=== PATIENT | male | born 1965 | race Caucasian/White ===

== ENCOUNTER → 2016-09-11 | Day surgery (SDC) | payer OTHER ==
[~2016-09-11] VITALS: Ht 172.7 cm; Wt 163.3 kg
[~2016-09-11] MED LIST: /METO25TAB PO; ASPI325T PO; ASPI81TA85 PO; CELE10TA PO; CHLO125TA PO; DRIS50002 PO; FISHOIL PO; GLUC500T PO; LISI5TAB PO; LR 1,000 ML IV SCH; POTA20PO4 PO; ZOCO40TA PO
--- NOTE | 2016-09-11 08:04 | ROOR ---
Patient Name: Tariq Fountain Procedure Date: 09/11/2016 6:15 AM Date of : 1965 Age: 51 Gender: Male Note Status: Finalized Procedure: Colonoscopy to Cecum Indications: Screening for colorectal malignant neoplasm Providers: Bk Mario MD Referring MD: ANA FARMER NP Requesting Provider: Medicines: Monitored Anesthesia Care Complications: No immediate complications. Procedure: Pre-Anesthesia Assessment: - The heart rate, respiratory rate, oxygen saturations, blood pressure, adequacy of pulmonary ventilation, and response to care were monitored throughout the procedure. The Colonoscope was introduced through the anus and advanced to the cecum, identified by appendiceal orifice and ileocecal valve. The colonoscopy was performed without difficulty. The patient tolerated the procedure well. The quality of the bowel preparation was excellent. Findings: The perianal and digital rectal examinations were normal. Non-bleeding internal hemorrhoids were found during retroflexion. The hemorrhoids were small and Grade I (internal hemorrhoids that do not prolapse). No other significant abnormalities were identified in a careful examination of the remainder of the colon. The exam was otherwise without abnormality. Impression: - Non-bleeding internal hemorrhoids. - The examination was otherwise normal. - No specimens collected. - The exam was otherwise normal to the cecum. Recommendation: - Patient has a contact number available for emergencies. The signs and symptoms of potential delayed complications were discussed with the patient. Return to normal activities tomorrow. Written discharge instructions were provided to the patient. - High fiber diet. - Discharge patient to home. - Continue present medications. - Repeat colonoscopy in 10 years for screening purposes. - Return to referring physician. - The findings and recommendations were discussed with the patient's family. Attending Participation: I personally performed the entire procedure. Bk Mario MD Bk Mario MD 09/11/2016 8:04:13 AM This report has been signed electronically. Number of Addenda: 0 Note Initiated On: 09/11/2016 6:15 AM Estimated Blood Loss: Estimated blood loss: none.
[2016-09-11 08:35] VITALS: BP 155/81
== END ==
LOC: M SDC 06:01
PROVIDERS: ATTEND Internal Medicine Gastroenterology
DX: Z12.11 Encounter for screening for malignant neoplasm of colon (principal); K64.0 First degree hemorrhoids; I10 Essential (primary) hypertension; E11.9 Type 2 diabetes mellitus without complications; E78.5 Hyperlipidemia, unspecified; M17.10 Unilateral primary osteoarthritis, unspecified knee; Z79.899 Other long term (current) drug therapy; Z79.84 Long term (current) use of oral hypoglycemic drugs; Z79.82 Long term (current) use of aspirin

== ENCOUNTER → 2016-11-22 | Outpatient (CLI) | payer OTHER ==
[~2016-11-22] MED LIST changes: -LR 1,000 ML IV SCH
--- NOTE | 2016-11-25 09:55 | SLEEPHOME ---
DATE OF STUDY: 11/22/2016 ORDERING PROVIDER: Michelle Mullins Diagnostic home sleep testing was performed due to concern for the obstructive sleep apnea syndrome. For testing, a NOX-T3 respiratory monitoring device was used. Continuous record was made of pulse, oxygen saturation, airflow, chest and abdominal strain, and body position. 9 hours and 59 minutes of data were reviewed. Of these, 4 hours and 6 minutes were marked as time in bed. During the interval marked time in bed, there were 358 respiratory events identified of 10 seconds in duration or greater for a respiratory event index of 87. The events were primarily obstructive. Some central and mixed apneas were scattered throughout the test. The patient's baseline pulse rate was 63. Pulse rate ranged 49-147. Baseline saturation 94%. Lowest oxygen saturation 76%. Testing was performed in predominantly the supine position. Limited nonsupine data was also reviewed. IMPRESSION: Abnormal diagnostic home sleep test with repetitive respiratory events and oxygen desaturations to 76% with a respiratory event index of 87 is consistent with severe obstructive sleep apnea syndrome. RECOMMENDATION: The patient should be encouraged to undergo formal sleep evaluation and in-laboratory pressure titration at the earliest convenience. In the interim, alcohol and sedative avoidance should be practiced and caution exercised during the operation of motor vehicles.
== END ==
LOC: M SLEEP HO 07:44
PROVIDERS: ATTEND Nurse Practitioner Adult Health
DX: G47.33 Obstructive sleep apnea (adult) (pediatric) (principal)

== ENCOUNTER → 2017-03-10 | Outpatient (CLI) | payer OTHER ==
--- NOTE | 2017-03-12 20:03 | SLEEPCENT ---
DATE OF PROCEDURE: 03/10/2017 REFERRING PHYSICIAN: Lydia Eli Nocturnal polysomnography was performed for the titration of pressure therapy in this patient with a clinical diagnosis of obstructive sleep apnea syndrome confirmed by home testing revealing a respiratory event index of 87. For testing, a [employer] Jen View full face mask of small size was used. 5 cm of water pressure were applied to the circuit and the lights were extinguished. 7 hours and 27 minutes of data were reviewed. There were 297 minutes of sleep identified. Sleep latency was prolonged at 132.5 minutes. Rapid eye movement (REM) latency was also prolonged at 151 minutes. Sleep architecture improved substantially with the optimal titration of pressure. Overall sleep efficiency was 67.1%. The patient's EKG showed a sinus rhythm with an average heart rate of 60 beats per minute. EEG showed reasonably normal waveforms for awake and sleep stages. Respiratory events persisted prompting and increase in CPAP pressure to the optimal pressure of +13, with which the patient slept through REM without respiratory event or oxygen desaturation in the supine posture. Significant limb activity was also noted, however, arousals from limb events were few. Remaining measures of sleep physiology were normal. IMPRESSION: Obstructive sleep apnea syndrome (G47.33). RECOMMENDATION: Nightly use of pressure therapy at 13 cm of water.
== END ==
LOC: M SLEEP 20:00
PROVIDERS: ATTEND Nurse Practitioner Adult Health
DX: G47.33 Obstructive sleep apnea (adult) (pediatric) (principal)

== ENCOUNTER → 2018-01-29 | Outpatient (CLI) | payer OTHER | LOC: M SLEEP 19:16 | DX: G47.33 Obstructive sleep apnea (adult) (pediatric) (principal) | CPT/HCPCS: 95811 ==

== ENCOUNTER → 2021-09-26 | Outpatient (REF) ==
[~2021-09-26] MED LIST changes: -/METO25TAB PO; -ASPI81TA85 PO; +ASPI81TA86 PO; -DRIS50002 PO; +DRIS50003 PO; +METO1TAB87 PO
== END ==
LOC: M PLAIMG 10:53
PROVIDERS: ATTEND Internal Medicine
DX: Z00.00 Encounter for general adult medical examination without abnormal findings (principal)

== ENCOUNTER 2023-06-19 21:15 | Inpatient (IN) | payer OTHER ==
[~2023-06-19] VITALS: Ht 172.7 cm; Wt 153.0 kg
[2023-06-19] MEDS ORDERED: NS 1,000 ML IV ONE (21:40)
[2023-06-19 21:55] LABS: BASO # 0.1 10^3/uL (0.0-0.2); BASO % 0.4 % (0.0-1.0); EOS # 0.3 10^3/uL (0.0-0.5); EOS % 2.1 % (0.0-3.0); HEMATOCRIT 45.2 % (42.0-52.0); HEMOGLOBIN 14.8 g/dl (13.5-17.5); LYMPH # 1.8 10^3/uL (1.5-5.0); MEAN CORPUSCULAR HEMOGLOBIN 28.4 pg (27.0-33.0); MEAN CORPUSCULAR HGB CONC 32.7 g/dl (32.0-36.5); MEAN CORPUSCULAR VOLUME 86.6 fl (80.0-96.0); MONO # 0.7 10^3/uL (0.0-0.8); MONO % 5.8 % (2.0-8.0); NEUTROPHILS # 8.9 10^3/uL (1.5-8.5); NEUTROPHILS % 76.4 % (36.0-66.0); PLATELET COUNT, AUTOMATED 297 10^3/uL (150-450); RED BLOOD COUNT 5.22 10^6/uL (4.30-6.10); WHITE BLOOD COUNT 11.7 10^3/uL (4.0-10.0)
[2023-06-19 22:00] LABS: ETHYL ALCOHOL (ETHANOL) < 0.003 % (0.000-0.010)
[2023-06-19 22:02] LABS: SALICYLATE LEVEL < 3.0 MG/DL (<30)
[2023-06-19 22:03] LABS: ACETONE/KETONE 0.28 MMOL/L (0.02-0.27)
[2023-06-19 22:04] LABS: OSMOLALITY SERUM 308 MOSM/KG (275-295)
[2023-06-19 22:05] LABS: ALBUMIN 2.9 G/DL (3.2-5.2); ALKALINE PHOSPHATASE 88 U/L (46-116); ALT/SGPT 16 U/L (7.0-40); AST/SGOT 14 U/L (<34); BILIRUBIN,DIRECT < 0.1 MG/DL (<0.4); BILIRUBIN,TOTAL 0.2 MG/DL (0.3-1.2); BLOOD UREA NITROGEN 21 MG/DL (9-23); CALCIUM LEVEL 8.8 MG/DL (8.5-10.1); CARBON DIOXIDE LEVEL 23 MMOL/L (20-31); CHLORIDE LEVEL 105 MMOL/L (98-107); CPK CREATINE PHOSPHOKINASE 123 U/L (46-171); CREATININE FOR GFR 0.88 MG/DL (0.70-1.30); GLOMERULAR FILTRATION RATE > 60.0 (>56); MB/CK RELATIVE INDEX 0.81 (< OR =4); POTASSIUM SERUM 4.1 MMOL/L (3.5-5.1); SODIUM LEVEL 137 MMOL/L (136-145); TOTAL PROTEIN 6.5 G/DL (5.7-8.2)
[2023-06-19 22:06] LABS: GLUCOSE, FASTING 483 MG/DL (60-100)
[2023-06-19 22:44] LABS: VENOUS BASE EXCESS -2.8 (-2.0-2.0); VENOUS HCO3 22.8 MMOL/L (23.0-27.0); VENOUS O2 SATURATION 87.6 % (60.0-80.0); VENOUS PARTIAL PRESSURE CO2 42.3 mmHg (38.0-50.0); VENOUS PARTIAL PRESSURE O2 55.4 mmHg (30.0-50.0); VENOUS PH 7.349 UNITS (7.330-7.430); VENOUS STANDARD HCO3 21.9 MMOL/L; VENOUS TOTAL CO2 24.1 MMOL/L (24.0-28.0)
[2023-06-19 23:07] LABS: HEMOGLOBIN A1c 11.4 % (4.0-6.0)
[2023-06-20 00:31] LABS: CK-MB VALUE MASS 1.5 NG/ML (<3.6)
[2023-06-20 00:34] LABS: MB/CK RELATIVE INDEX 1.21 (< OR =4)
[2023-06-20] MEDS ORDERED: LEVEMIR (INSULIN DETEMIR) 1 UNITS/0.01ML SC ONE (00:55)
[2023-06-20] MEDS ORDERED: HumuLIN R (REGULAR) INSULIN (NovoLIN R) **100U/ML** PER UNIT SC ONE (00:55)
[2023-06-20] MEDS ORDERED: CARVedilol 12.5 MG TAB PO ONE ×2 (00:55→05:25)
[2023-06-20 01:54] LABS: AMPHETAMINES LEVEL URINE NEGATIVE (NEGATIVE); BARBITURATES URINE NEGATIVE (NEGATIVE); BENZODIAZEPINES URINE NEGATIVE (NEGATIVE); CANNABINOIDS URINE NEGATIVE (NEGATIVE); COCAINE METABOLITE URINE NEGATIVE (NEGATIVE); METHADONE URINE NEGATIVE (NEGATIVE); OPIATES URINE NEGATIVE (NEGATIVE); PHENCYCLIDINE URINE NEGATIVE (NEGATIVE)
[2023-06-20] MEDS ORDERED: APIXABAN 5 MG TAB (ELIQUIS) PO ONE (04:55)
[2023-06-20] MEDS ORDERED: GLUCAGON INJ 1MG VIAL SC PRN (05:25)
[2023-06-20] MEDS ORDERED: GLUCOSE 4GM CHEW TABLET PO PRN (05:25)
[2023-06-20] MEDS ORDERED: DEXTROSE 50% 50ML SYRINGE IV PRN (05:25)
[2023-06-20] MEDS ORDERED: FENO200C24 PO (05:30)
[2023-06-20] MEDS ORDERED: C 50TAB PO (05:30)
[2023-06-20] MEDS ORDERED: VITA100093 PO (05:30)
[2023-06-20] MEDS ORDERED: ASPI-161 PO (05:30)
[2023-06-20] MEDS ORDERED: OMEG10002 PO (05:30)
[2023-06-20] MEDS ORDERED: NESI25TA PO (05:30)
[2023-06-20] MEDS ORDERED: METF-877 PO (05:30)
[2023-06-20] MEDS ORDERED: HOME MED LIST COMPLETE! XX SCH (05:35)
[2023-06-20 07:32] LABS: THYROID STIMULATING HORMONE 0.628 uIU/ML (0.55-4.78)
[2023-06-20] MEDS: INSULIN LISPRO (NovoLOG) PER UNIT SC SCH ×4 (09:21→21:00)
[2023-06-20 11:29] LABS: MAGNESIUM LEVEL 1.8 MG/DL (1.8-2.4)
[2023-06-20] MEDS ORDERED: DIGOXIN INJ 0.5 MG/2 ML AMP IV STA (16:11)
[2023-06-20 16:35] VITALS: BP 151/81; TEMP 97.7; O2SAT 96
[2023-06-20 19:51] VITALS: BP 153/98; TEMP 97.2; O2SAT 97
[2023-06-20] MEDS: CARVedilol 12.5 MG TAB PO SCH (20:06)
[2023-06-20] MEDS: APIXABAN 5 MG TAB (ELIQUIS) PO SCH (20:06)
[2023-06-20 23:36] VITALS: BP 159/77; TEMP 96.7; O2SAT 97
[2023-06-21] MEDS: ACETAMINOPHEN TAB 650MG DOSE (2X325MG) PO PRN (01:42)
[2023-06-21 03:39] VITALS: BP 150/94; TEMP 96.5; O2SAT 93
[2023-06-21 05:18] LABS: BASO # 0.1 10^3/uL (0.0-0.2); BASO % 0.6 % (0.0-1.0); EOS # 0.5 10^3/uL (0.0-0.5); EOS % 4.3 % (0.0-3.0); LYMPH # 2.6 10^3/uL (1.5-5.0); LYMPH % 23.7 % (24.0-44.0); MEAN CORPUSCULAR HEMOGLOBIN 28.1 pg (27.0-33.0); MEAN CORPUSCULAR HGB CONC 32.6 g/dl (32.0-36.5); MEAN CORPUSCULAR VOLUME 86.2 fl (80.0-96.0); MONO # 0.8 10^3/uL (0.0-0.8); NEUTROPHILS # 6.9 10^3/uL (1.5-8.5); NEUTROPHILS % 64.1 % (36.0-66.0); PLATELET COUNT, AUTOMATED 294 10^3/uL (150-450); RED BLOOD COUNT 4.99 10^6/uL (4.30-6.10); WHITE BLOOD COUNT 10.8 10^3/uL (4.0-10.0)
[2023-06-21 05:33] LABS: BLOOD UREA NITROGEN 22 MG/DL (9-23); CALCIUM LEVEL 8.9 MG/DL (8.5-10.1); CARBON DIOXIDE LEVEL 23 MMOL/L (20-31); CHLORIDE LEVEL 103 MMOL/L (98-107); GLOMERULAR FILTRATION RATE > 60.0 (>56); GLUCOSE, FASTING 265 MG/DL (60-100); POTASSIUM SERUM 4.3 MMOL/L (3.5-5.1); SODIUM LEVEL 135 MMOL/L (136-145)
[2023-06-21 08:00] VITALS: BP 153/87; TEMP 97; O2SAT 96
[2023-06-21] MEDS ORDERED: INFLUENZA QUADRIVALENT PF VACCINE 0.5ML SYRINGE IM.IMMUN ONE (09:00)
[2023-06-21] MEDS: CARVedilol 12.5 MG TAB PO SCH ×2 (09:20→20:32)
[2023-06-21] MEDS: APIXABAN 5 MG TAB (ELIQUIS) PO SCH ×2 (09:20→20:32)
[2023-06-21] MEDS: DIGOXIN 0.125 MG TAB PO SCH (09:21)
[2023-06-21] MEDS: INSULIN LISPRO (NovoLOG) PER UNIT SC SCH ×7 (09:22→20:33)
[2023-06-21 12:00] VITALS: BP 144/91; TEMP 98.3; O2SAT 95
[2023-06-21 16:00] VITALS: BP 152/86; TEMP 97.6; O2SAT 95
[2023-06-21 20:20] VITALS: BP 163/75; TEMP 96.9; O2SAT 92
[2023-06-21 21:55] VITALS: BP 144/73; TEMP 97.9; O2SAT 93
[2023-06-21] MEDS ORDERED: INSULIN LISPRO (NovoLOG) PER UNIT SC STA (22:43)
[2023-06-22] MEDS ORDERED: metFORMIN (GLUCOPHAGE) 1000MG TABLET PO ONE (01:00)
[2023-06-22 05:53] VITALS: BP 139/74; TEMP 97.5; O2SAT 96
[2023-06-22 08:53] LABS: BLOOD UREA NITROGEN 20 MG/DL (9-23); CALCIUM LEVEL 9.2 MG/DL (8.5-10.1); CARBON DIOXIDE LEVEL 25 MMOL/L (20-31); CHLORIDE LEVEL 105 MMOL/L (98-107); CREATININE FOR GFR 0.77 MG/DL (0.70-1.30); GLOMERULAR FILTRATION RATE > 60.0 (>56); GLUCOSE, FASTING 273 MG/DL (60-100); POTASSIUM SERUM 4.6 MMOL/L (3.5-5.1); SODIUM LEVEL 139 MMOL/L (136-145)
[2023-06-22] MEDS: APIXABAN 5 MG TAB (ELIQUIS) PO SCH ×2 (09:25→21:28)
[2023-06-22] MEDS: ASCORBIC ACID 500 MG TAB PO SCH (09:25)
[2023-06-22] MEDS: ASPIRIN 81MG ENTERIC TABLET PO SCH (09:25)
[2023-06-22] MEDS: SITagliptin 50 MG TAB (JANUVIA) PO SCH (09:25)
[2023-06-22] MEDS: OMEGA-3 1000MG CAPSULE PO SCH (09:25)
[2023-06-22] MEDS: VITAMIN D 1,000 INTERNATIONAL UNITS TABLET PO SCH (09:25)
[2023-06-22] MEDS: INSULIN LISPRO (NovoLOG) PER UNIT SC SCH ×7 (09:26→21:00)
[2023-06-22] MEDS: DIGOXIN 0.125 MG TAB PO SCH (09:27)
[2023-06-22] MEDS: metFORMIN (GLUCOPHAGE) 1000MG TABLET PO SCH ×2 (09:28→21:28)
[2023-06-22] MEDS: CARVedilol 12.5 MG TAB PO SCH ×2 (09:28→21:28)
[2023-06-22 12:12] LABS: DIGOXIN LEVEL 0.3 NG/ML (0.8-2.0)
[2023-06-22 14:00] VITALS: BP 121/59; TEMP 98.6; O2SAT 94
[2023-06-22 21:05] VITALS: BP 146/84; TEMP 97; O2SAT 93
[2023-06-22] MEDS: ACETAMINOPHEN TAB 650MG DOSE (2X325MG) PO PRN (21:28)
[2023-06-23 06:00] VITALS: BP 136/81; TEMP 98.2; O2SAT 98
[2023-06-23] MEDS: INSULIN LISPRO (NovoLOG) PER UNIT SC SCH ×7 (08:48→21:00)
[2023-06-23] MEDS: ASPIRIN 81MG ENTERIC TABLET PO SCH (08:49)
[2023-06-23] MEDS: OMEGA-3 1000MG CAPSULE PO SCH (08:49)
[2023-06-23] MEDS: VITAMIN D 1,000 INTERNATIONAL UNITS TABLET PO SCH (08:49)
[2023-06-23] MEDS: SITagliptin 50 MG TAB (JANUVIA) PO SCH (08:49)
[2023-06-23] MEDS: ASCORBIC ACID 500 MG TAB PO SCH (08:49)
[2023-06-23] MEDS: APIXABAN 5 MG TAB (ELIQUIS) PO SCH ×2 (08:49→21:16)
[2023-06-23] MEDS: DIGOXIN 0.125 MG TAB PO SCH (08:49)
[2023-06-23] MEDS: metFORMIN (GLUCOPHAGE) 1000MG TABLET PO SCH ×2 (08:49→21:16)
[2023-06-23] MEDS: CARVedilol 12.5 MG TAB PO SCH ×2 (08:50→21:17)
[2023-06-23 14:00] VITALS: BP 114/63; TEMP 97.7; O2SAT 93
[2023-06-23 20:00] VITALS: BP 144/90; TEMP 97.6; O2SAT 96
[2023-06-24] VITALS (8 sets, daily range): BP systolic 124–150; BP diastolic 60–91; TEMP 97.2–98.1; O2SAT 94–98
[2023-06-24] MEDS ORDERED: ISOVUE-370 76% 100ML VIAL As Ordered ONE (03:38)
[2023-06-24 03:40] LABS: HEMATOCRIT 41.2 % (42.0-52.0); HEMOGLOBIN 13.6 g/dl (13.5-17.5); MEAN CORPUSCULAR HEMOGLOBIN 28.9 pg (27.0-33.0); MEAN CORPUSCULAR VOLUME 87.7 fl (80.0-96.0); PLATELET COUNT, AUTOMATED 233 10^3/uL (150-450); WHITE BLOOD COUNT 11.3 10^3/uL (4.0-10.0)
[2023-06-24 04:00] LABS: INR 1.32; PARTIAL THROMBOPLASTIN TIME 30.1 SECONDS (24.8-34.2)
[2023-06-24 04:04] LABS: ALBUMIN 2.8 G/DL (3.2-5.2); ALKALINE PHOSPHATASE 75 U/L (46-116); ALT/SGPT 24 U/L (7.0-40); AST/SGOT 23 U/L (<34); BILIRUBIN,TOTAL 0.5 MG/DL (0.3-1.2); BLOOD UREA NITROGEN 19 MG/DL (9-23); CALCIUM LEVEL 9.2 MG/DL (8.5-10.1); CARBON DIOXIDE LEVEL 26 MMOL/L (20-31); CHLORIDE LEVEL 105 MMOL/L (98-107); CHOLESTEROL LEVEL 175 MG/DL (<200); CHOLESTEROL RISK RATIO 5.07 (<5); CREATININE FOR GFR 0.83 MG/DL (0.70-1.30); GLOMERULAR FILTRATION RATE > 60.0 (>56); GLUCOSE, FASTING 184 MG/DL (60-100); HDL CHOLESTEROL 34.5 MG/DL (>40); LDL CHOLESTEROL 102.3 MG/DL (<100); NON-HDL-C 140.5 MG/DL; POTASSIUM SERUM 4.8 MMOL/L (3.5-5.1); SODIUM LEVEL 139 MMOL/L (136-145); TOTAL PROTEIN 6.1 G/DL (5.7-8.2); TRIGLYCERIDES LEVEL 191 MG/DL (<150)
[2023-06-24] MEDS: ACETAMINOPHEN TAB 650MG DOSE (2X325MG) PO PRN ×2 (05:48→12:50)
[2023-06-24 06:40] LABS: BLOOD UREA NITROGEN 17 MG/DL (9-23); CALCIUM LEVEL 8.9 MG/DL (8.5-10.1); CARBON DIOXIDE LEVEL 27 MMOL/L (20-31); CHLORIDE LEVEL 105 MMOL/L (98-107); CREATININE FOR GFR 0.79 MG/DL (0.70-1.30); GLOMERULAR FILTRATION RATE > 60.0 (>56); GLUCOSE, FASTING 181 MG/DL (60-100); POTASSIUM SERUM 4.7 MMOL/L (3.5-5.1); SODIUM LEVEL 139 MMOL/L (136-145)
[2023-06-24] MEDS: INSULIN LISPRO (NovoLOG) PER UNIT SC SCH ×7 (07:30→20:21)
[2023-06-24] MEDS: VITAMIN D 1,000 INTERNATIONAL UNITS TABLET PO SCH (09:04)
[2023-06-24] MEDS: APIXABAN 5 MG TAB (ELIQUIS) PO SCH ×2 (09:04→20:20)
[2023-06-24] MEDS: OMEGA-3 1000MG CAPSULE PO SCH (09:04)
[2023-06-24] MEDS: ATORVASTATIN 20 MG TAB PO SCH (09:04)
[2023-06-24] MEDS: SITagliptin 50 MG TAB (JANUVIA) PO SCH (09:04)
[2023-06-24] MEDS: ASCORBIC ACID 500 MG TAB PO SCH (09:04)
[2023-06-24] MEDS: ASPIRIN 81MG ENTERIC TABLET PO SCH (09:05)
[2023-06-24] MEDS: CARVedilol 12.5 MG TAB PO SCH ×2 (09:05→20:20)
[2023-06-24] MEDS: DIGOXIN 0.125 MG TAB PO SCH (09:05)
[2023-06-25] MEDS: ACETAMINOPHEN TAB 650MG DOSE (2X325MG) PO PRN ×3 (03:57→22:20)
[2023-06-25 05:22] VITALS: BP 180/92; TEMP 97.5; O2SAT 97
[2023-06-25 06:17] LABS: BASO # 0.1 10^3/uL (0.0-0.2); BASO % 0.6 % (0.0-1.0); EOS # 0.4 10^3/uL (0.0-0.5); EOS % 3.6 % (0.0-3.0); HEMATOCRIT 39.6 % (42.0-52.0); HEMOGLOBIN 12.9 g/dl (13.5-17.5); LYMPH # 2.4 10^3/uL (1.5-5.0); LYMPH % 23.2 % (24.0-44.0); MEAN CORPUSCULAR HGB CONC 32.6 g/dl (32.0-36.5); MEAN CORPUSCULAR VOLUME 86.1 fl (80.0-96.0); MONO # 0.9 10^3/uL (0.0-0.8); MONO % 8.6 % (2.0-8.0); NEUTROPHILS # 6.5 10^3/uL (1.5-8.5); NEUTROPHILS % 63.7 % (36.0-66.0); PLATELET COUNT, AUTOMATED 231 10^3/uL (150-450); WHITE BLOOD COUNT 10.2 10^3/uL (4.0-10.0)
[2023-06-25 06:37] VITALS: BP 162/84
[2023-06-25 06:40] LABS: BLOOD UREA NITROGEN 16 MG/DL (9-23); CALCIUM LEVEL 8.8 MG/DL (8.5-10.1); CARBON DIOXIDE LEVEL 23 MMOL/L (20-31); CHLORIDE LEVEL 105 MMOL/L (98-107); GLOMERULAR FILTRATION RATE > 60.0 (>56); GLUCOSE, FASTING 184 MG/DL (60-100); MAGNESIUM LEVEL 1.7 MG/DL (1.8-2.4); POTASSIUM SERUM 4.9 MMOL/L (3.5-5.1); SODIUM LEVEL 137 MMOL/L (136-145)
[2023-06-25 08:00] VITALS: BP 160/72; TEMP 97.3; O2SAT 92
[2023-06-25] MEDS: INSULIN LISPRO (NovoLOG) PER UNIT SC SCH ×7 (08:52→22:15)
[2023-06-25] MEDS: DIGOXIN 0.125 MG TAB PO SCH (09:03)
[2023-06-25] MEDS: OMEGA-3 1000MG CAPSULE PO SCH (09:03)
[2023-06-25] MEDS: SITagliptin 50 MG TAB (JANUVIA) PO SCH (09:04)
[2023-06-25] MEDS: ASPIRIN 81MG ENTERIC TABLET PO SCH (09:05)
[2023-06-25] MEDS ORDERED: SENOKOT S TAB PO PRN (09:05)
[2023-06-25] MEDS ORDERED: MOM 30ML SUSPENSION UDC PO PRN (09:05)
[2023-06-25] MEDS ORDERED: MAGNESIUM OXIDE 400MG TAB (MAG-OX) PO ONE (09:05)
[2023-06-25] MEDS: VITAMIN D 1,000 INTERNATIONAL UNITS TABLET PO SCH (09:05)
[2023-06-25] MEDS ORDERED: MIRALAX *UNIT DOSE* 17GM PACKET PO PRN (09:05)
[2023-06-25] MEDS ORDERED: PERCOCET 5MG/325MG TAB PO PRN ×2 (09:05)
[2023-06-25] MEDS: ATORVASTATIN 20 MG TAB PO SCH (09:06)
[2023-06-25] MEDS: APIXABAN 5 MG TAB (ELIQUIS) PO SCH ×2 (09:06→22:19)
[2023-06-25] MEDS: ASCORBIC ACID 500 MG TAB PO SCH (09:06)
[2023-06-25] MEDS: CARVedilol 12.5 MG TAB PO SCH ×2 (09:16→22:20)
[2023-06-25] MEDS ORDERED: ATOR1TAB21 PO (09:53)
[2023-06-25] MEDS ORDERED: ELIQ5TAB PO (09:53)
[2023-06-25] MEDS ORDERED: SITA50TAB PO (09:53)
[2023-06-25] MEDS ORDERED: CARV12.5 PO (09:53)
[2023-06-25] MEDS ORDERED: DIGO0.123 PO (09:53)
[2023-06-25] MEDS ORDERED: ALCOPAD25 TOP (09:57)
[2023-06-25] MEDS ORDERED: LANC30MI XX (09:57)
[2023-06-25] MEDS ORDERED: PEN-308 SC (09:57)
[2023-06-25] MEDS ORDERED: BLOOKIT21 XX (09:57)
[2023-06-25] MEDS ORDERED: HUMA100I5 SC (09:57)
[2023-06-25] MEDS ORDERED: MAG SULF 1GM/100ML (MAG RUN) 1 GM in IV 1 EA IV ONE (10:00)
[2023-06-25 14:00] VITALS: BP 122/70; TEMP 97.5; O2SAT 96
[2023-06-25 21:49] VITALS: BP 149/78; TEMP 97.8; O2SAT 99
[2023-06-26] MEDS: ACETAMINOPHEN TAB 650MG DOSE (2X325MG) PO PRN (07:51)
[2023-06-26] MEDS: INSULIN LISPRO (NovoLOG) PER UNIT SC SCH ×7 (08:53→21:27)
[2023-06-26] MEDS: ATORVASTATIN 20 MG TAB PO SCH (08:54)
[2023-06-26] MEDS: ASPIRIN 81MG ENTERIC TABLET PO SCH (08:54)
[2023-06-26] MEDS: OMEGA-3 1000MG CAPSULE PO SCH (08:55)
[2023-06-26] MEDS: SITagliptin 50 MG TAB (JANUVIA) PO SCH (08:55)
[2023-06-26] MEDS: CARVedilol 12.5 MG TAB PO SCH ×2 (08:59→20:12)
[2023-06-26] MEDS: ASCORBIC ACID 500 MG TAB PO SCH (08:59)
[2023-06-26] MEDS: DIGOXIN 0.125 MG TAB PO SCH (09:00)
[2023-06-26] MEDS: APIXABAN 5 MG TAB (ELIQUIS) PO SCH ×2 (09:00→20:07)
[2023-06-26] MEDS: VITAMIN D 1,000 INTERNATIONAL UNITS TABLET PO SCH (09:00)
[2023-06-26 20:40] VITALS: BP 135/63; TEMP 97.9
[2023-06-27 06:23] VITALS: BP 132/76; TEMP 97.7; O2SAT 96
[2023-06-27] MEDS: ACETAMINOPHEN TAB 650MG DOSE (2X325MG) PO PRN ×2 (07:31→21:27)
[2023-06-27] MEDS: ASCORBIC ACID 500 MG TAB PO SCH (08:08)
[2023-06-27] MEDS: INSULIN LISPRO (NovoLOG) PER UNIT SC SCH ×7 (08:08→21:00)
[2023-06-27] MEDS: ASPIRIN 81MG ENTERIC TABLET PO SCH (08:08)
[2023-06-27] MEDS: OMEGA-3 1000MG CAPSULE PO SCH (08:08)
[2023-06-27] MEDS: VITAMIN D 1,000 INTERNATIONAL UNITS TABLET PO SCH (08:08)
[2023-06-27] MEDS: SITagliptin 50 MG TAB (JANUVIA) PO SCH (08:09)
[2023-06-27] MEDS: ATORVASTATIN 20 MG TAB PO SCH (08:09)
[2023-06-27] MEDS: APIXABAN 5 MG TAB (ELIQUIS) PO SCH ×2 (08:12→21:28)
[2023-06-27] MEDS: DIGOXIN 0.125 MG TAB PO SCH (08:15)
[2023-06-27] MEDS: CARVedilol 12.5 MG TAB PO SCH ×2 (08:15→21:27)
[2023-06-27 14:06] VITALS: BP 110/47; TEMP 97.3; O2SAT 97
[2023-06-27 20:58] VITALS: BP 143/82; TEMP 97.3; O2SAT 96
[2023-06-27 21:27] VITALS: BP 143/82
[2023-06-28 06:55] VITALS: BP 132/74; TEMP 97.7; O2SAT 94
[2023-06-28] MEDS: INSULIN LISPRO (NovoLOG) PER UNIT SC SCH ×2 (08:11→09:30)
[2023-06-28] MEDS: ATORVASTATIN 20 MG TAB PO SCH (08:12)
[2023-06-28] MEDS: OMEGA-3 1000MG CAPSULE PO SCH (08:12)
[2023-06-28] MEDS: CARVedilol 12.5 MG TAB PO SCH (08:12)
[2023-06-28] MEDS: VITAMIN D 1,000 INTERNATIONAL UNITS TABLET PO SCH (08:12)
[2023-06-28] MEDS: ASCORBIC ACID 500 MG TAB PO SCH (08:12)
[2023-06-28] MEDS: APIXABAN 5 MG TAB (ELIQUIS) PO SCH (08:12)
[2023-06-28] MEDS: ASPIRIN 81MG ENTERIC TABLET PO SCH (08:12)
[2023-06-28] MEDS: SITagliptin 50 MG TAB (JANUVIA) PO SCH (08:13)
[2023-06-28] MEDS: DIGOXIN 0.125 MG TAB PO SCH (08:13)
[2023-06-28] MEDS ORDERED: NIRM1TAB PO (12:20)
== END 2023-06-28 09:50 | disposition home health service (06) | DRG 201 ==
LOC: M ED 21:15 → EDBD 21:15 → M ED INP 06-20 05:21 → ENRESERV 06-20 14:49 → M PCU 06-20 16:22 → M ED INP 06-20 16:26 → M PCU 06-20 16:38 → M MSPAV 06-21 21:50 → M ICU 06-24 05:34 → M MS5PR 06-24 18:45
PROVIDERS: ADMIT Internal Medicine; ATTEND General Practice
PROC: B246ZZZ Ultrasonography of Right and Left Heart (ICD-10-PCS; principal; 2023-06-20)
DX: I48.92 Unspecified atrial flutter (principal); I27.20 Pulmonary hypertension, unspecified; Z68.43 Body mass index [BMI] 50.0-59.9, adult; E11.65 Type 2 diabetes mellitus with hyperglycemia; R47.01 Aphasia; E66.01 Morbid (severe) obesity due to excess calories; R53.1 Weakness; U07.1 COVID-19; I10 Essential (primary) hypertension; I48.91 Unspecified atrial fibrillation; D72.829 Elevated white blood cell count, unspecified; G47.33 Obstructive sleep apnea (adult) (pediatric); M17.0 Bilateral primary osteoarthritis of knee; R53.81 Other malaise; R47.1 Dysarthria and anarthria; R41.0 Disorientation, unspecified; Z79.84 Long term (current) use of oral hypoglycemic drugs; Z79.82 Long term (current) use of aspirin; Z79.899 Other long term (current) drug therapy; Z91.199 Patient's noncompliance with other medical treatment and regimen due to unspecified reason

== ENCOUNTER 2023-11-20 06:16 | Day surgery (SDC) | payer OTHER ==
[~2023-11-20] VITALS: Ht 172.7 cm; Wt 150.3 kg
[~2023-11-20 06:16] MED LIST changes: +ALCOPAD25 TOP; +ASPI-615 PO; +ATOR1TAB21 PO; +BLOOKIT21 XX; +C 50TAB PO; +CARV12.5 PO; +DIGO0.123 PO; +ELIQ5TAB PO; +FARX1TAB5 PO; +FENO200C24 PO; +HUMA100I5 SC; +LANC30MI XX; +LEVE750T5 PO; +METF-877 PO; +NESI25TA PO; +NIRM1TAB PO; +OMEG10002 PO; +PANT40TA29 PO; +PEN-308 SC; +PHENYLEPHRINE 10% OPHTH SOL 5ML OD PRN; +PROP325C2 PO; +SITA50TAB PO; +VITA100093 PO
[2023-11-20] MEDS: OFLOXACIN 0.3 % (OCUFLOX) OPTH SOL 5ML OD ONE (07:00)
[2023-11-20] MEDS: LIDOCAINE 3.5 % 1ML OPHTH TOPICAL GEL OU ONE (07:00)
[2023-11-20] MEDS: ATROPINE SULFATE 1% OPHTH SOLN 2ML BTL OD SCH (07:23)
[2023-11-20] MEDS: TROPICAMIDE 1% OPHTH SOLN 15ML OD SCH (07:23)
[2023-11-20] MEDS: PHENYLEPHRINE 2.5% OPHTH SOL 2ML OD SCH (07:23)
[2023-11-20] MEDS ORDERED: MIDAZOLAM INJ 2MG/2ML VIAL As Ordered ONE (08:07)
[2023-11-20] MEDS ORDERED: fentaNYL 100 MCG/2 ML INJECTION As Ordered ONE (08:11)
[2023-11-20] MEDS: LIDOCAINE 1% SDV 5ML VIAL As Ordered ONE (08:16)
[2023-11-20] MEDS: BSS IRRIG/VANCO(10MG)/TOBRA(5MG)/EPINEPH(1:1000-0.5CC)500ML BAG-ORONLY As Ordered ONE (08:16)
[2023-11-20] MEDS: CEFUROXIME 1MG/0.1ML INTRACAMERAL INJ As Ordered ONE (08:18)
[2023-11-20] MEDS: CARBACHOL 0.01% OPHTH SOLN 1.5ML VIAL As Ordered ONE (08:27)
[2023-11-20 08:32] VITALS: BP 166/87; TEMP 96.6; O2SAT 96
== END 2023-11-20 08:52 | disposition home or self-care (01) ==
LOC: M SDC 06:16
PROVIDERS: ATTEND Ophthalmology
DX: H25.11 Age-related nuclear cataract, right eye (principal); E11.9 Type 2 diabetes mellitus without complications; G47.30 Sleep apnea, unspecified; I10 Essential (primary) hypertension; I48.92 Unspecified atrial flutter; M17.0 Bilateral primary osteoarthritis of knee; R56.9 Unspecified convulsions; Z79.899 Other long term (current) drug therapy; Z79.01 Long term (current) use of anticoagulants; Z79.4 Long term (current) use of insulin
CPT/HCPCS: 66984; J0697; J2250; J3010; V2632

== ENCOUNTER 2023-12-11 11:53 | Day surgery (SDC) | payer OTHER ==
[~2023-12-11] VITALS: Ht 172.7 cm; Wt 150.0 kg
[~2023-12-11 11:53] MED LIST changes: -PHENYLEPHRINE 10% OPHTH SOL 5ML OD PRN; +PHENYLEPHRINE 10% OPHTH SOL 5ML OS PRN; -PROP325C2 PO; +[UNRECOGNIZED DRUG - CODE] PO
[2023-12-11] MEDS: LIDOCAINE 3.5 % 1ML OPHTH TOPICAL GEL OU ONE (14:10)
[2023-12-11] MEDS: TROPICAMIDE 1% OPHTH SOLN 15ML OS SCH (14:21)
[2023-12-11] MEDS: ATROPINE SULFATE 1% OPHTH SOLN 2ML BTL OS SCH (14:21)
[2023-12-11] MEDS: PHENYLEPHRINE 2.5% OPHTH SOL 2ML OS SCH (14:21)
[2023-12-11] MEDS ORDERED: fentaNYL 100 MCG/2 ML INJECTION As Ordered ONE (14:46)
[2023-12-11] MEDS ORDERED: MIDAZOLAM INJ 2MG/2ML VIAL As Ordered ONE (14:46)
[2023-12-11] MEDS: OFLOXACIN 0.3 % (OCUFLOX) OPTH SOL 5ML OS ONE (15:01)
[2023-12-11] MEDS: BSS IRRIG/VANCO(10MG)/TOBRA(5MG)/EPINEPH(1:1000-0.5CC)500ML BAG-ORONLY As Ordered ONE (15:16)
[2023-12-11] MEDS: LIDOCAINE 1% SDV 5ML VIAL As Ordered ONE (15:16)
[2023-12-11] MEDS: CEFUROXIME 1MG/0.1ML INTRACAMERAL INJ As Ordered ONE (15:17)
[2023-12-11 15:30] VITALS: BP 174/85; TEMP 97.1; O2SAT 97
== END 2023-12-11 15:46 | disposition home or self-care (01) ==
LOC: M SDC 11:53
PROVIDERS: ATTEND Ophthalmology
DX: H25.12 Age-related nuclear cataract, left eye (principal); E11.9 Type 2 diabetes mellitus without complications; G47.30 Sleep apnea, unspecified; Z95.5 Presence of coronary angioplasty implant and graft; Z79.899 Other long term (current) drug therapy
CPT/HCPCS: 66984; J0697; J2250; J3010; V2632

== ENCOUNTER → 2024-04-27 | Outpatient (REF) | payer OTHER ==
[~2024-04-27] MED LIST changes: +ATOR40TA75 PO; +BACT800T5 PO; +CARV25TA PO; +CEPH500C PO; +LANTINJ4 SC; +MAGN400T2 PO; +METF500T13 PO; -PHENYLEPHRINE 10% OPHTH SOL 5ML OS PRN; +VITA500054 PO
[2024-04-27 10:21] LABS: HEMATOCRIT 38.4 % (42.0-52.0); HEMOGLOBIN 11.9 g/dl (13.5-17.5); MEAN CORPUSCULAR HEMOGLOBIN 24.8 pg (27.0-33.0); MEAN CORPUSCULAR VOLUME 80.2 fl (80.0-96.0); PLATELET COUNT, AUTOMATED 290 10^3/uL (150-450); RED BLOOD COUNT 4.79 10^6/uL (4.30-6.10); WHITE BLOOD COUNT 10.7 10^3/uL (4.0-10.0)
[2024-04-27 10:54] LABS: BLOOD UREA NITROGEN 21 MG/DL (9-23); CALCIUM LEVEL 9.6 MG/DL (8.5-10.1); CARBON DIOXIDE LEVEL 26 MMOL/L (20-31); CHLORIDE LEVEL 105 MMOL/L (98-107); CREATININE FOR GFR 0.81 MG/DL (0.70-1.30); GLOMERULAR FILTRATION RATE > 60.0 (>56); GLUCOSE, FASTING 198 MG/DL (60-100); POTASSIUM SERUM 4.2 MMOL/L (3.5-5.1); SODIUM LEVEL 141 MMOL/L (136-145)
== END ==
LOC: SKLAB2 08:01
PROVIDERS: ATTEND Internal Medicine
DX: I10 Essential (primary) hypertension (principal)

== ENCOUNTER → 2024-04-30 | Outpatient (REF) | payer OTHER ==
[2024-04-30 11:14] LABS: HEMATOCRIT 39.1 % (42.0-52.0); HEMOGLOBIN 11.9 g/dl (13.5-17.5); MEAN CORPUSCULAR HEMOGLOBIN 24.7 pg (27.0-33.0); MEAN CORPUSCULAR HGB CONC 30.4 g/dl (32.0-36.5); MEAN CORPUSCULAR VOLUME 81.3 fl (80.0-96.0); PLATELET COUNT, AUTOMATED 298 10^3/uL (150-450); RED BLOOD COUNT 4.81 10^6/uL (4.30-6.10); WHITE BLOOD COUNT 10.9 10^3/uL (4.0-10.0)
[2024-04-30 11:43] LABS: BLOOD UREA NITROGEN 22 MG/DL (9-23); CALCIUM LEVEL 9.2 MG/DL (8.5-10.1); CARBON DIOXIDE LEVEL 28 MMOL/L (20-31); CHLORIDE LEVEL 105 MMOL/L (98-107); GLOMERULAR FILTRATION RATE > 60.0 (>56); GLUCOSE, FASTING 155 MG/DL (60-100); POTASSIUM SERUM 3.9 MMOL/L (3.5-5.1); SODIUM LEVEL 140 MMOL/L (136-145)
== END ==
LOC: SKLAB2 07:34
PROVIDERS: ATTEND Internal Medicine
DX: Z11.1 Encounter for screening for respiratory tuberculosis (principal)

== ENCOUNTER → 2024-05-01 | Outpatient (REF) | payer OTHER ==
[2024-05-01 09:57] LABS: HEMATOCRIT 39.7 % (42.0-52.0); HEMOGLOBIN 12.5 g/dl (13.5-17.5); MEAN CORPUSCULAR HEMOGLOBIN 25.2 pg (27.0-33.0); MEAN CORPUSCULAR HGB CONC 31.5 g/dl (32.0-36.5); MEAN CORPUSCULAR VOLUME 79.9 fl (80.0-96.0); PLATELET COUNT, AUTOMATED 282 10^3/uL (150-450); RED BLOOD COUNT 4.97 10^6/uL (4.30-6.10); WHITE BLOOD COUNT 12.1 10^3/uL (4.0-10.0)
[2024-05-01 10:31] LABS: PSA SCREENING 0.37 NG/ML (< 4.00)
[2024-05-01 10:33] LABS: HEMOGLOBIN A1c 7.4 % (4.0-6.0)
[2024-05-01 10:34] LABS: DIGOXIN LEVEL 0.5 NG/ML (0.8-2.0)
[2024-05-01 10:35] LABS: ALBUMIN 3.1 G/DL (3.2-5.2); ALKALINE PHOSPHATASE 67 U/L (46-116); ALT/SGPT 12 U/L (7.0-40); AST/SGOT < 8 U/L (<34); BILIRUBIN,TOTAL 0.5 MG/DL (0.3-1.2); BLOOD UREA NITROGEN 18 MG/DL (9-23); CALCIUM LEVEL 9.3 MG/DL (8.5-10.1); CARBON DIOXIDE LEVEL 28 MMOL/L (20-31); CHLORIDE LEVEL 108 MMOL/L (98-107); CHOLESTEROL LEVEL 117 MG/DL (<200); CHOLESTEROL RISK RATIO 3.99 (<5); CREATININE FOR GFR 0.86 MG/DL (0.70-1.30); GLOMERULAR FILTRATION RATE > 60.0 (>56); GLUCOSE, FASTING 169 MG/DL (60-100); HDL CHOLESTEROL 29.3 MG/DL (>40); LDL CHOLESTEROL 61.7 MG/DL (<100); NON-HDL-C 87.7 MG/DL; SODIUM LEVEL 139 MMOL/L (136-145); TOTAL 25(OH) VITAMIN D 37.6 NG/ML (20.0-100.0); TOTAL PROTEIN 6.6 G/DL (5.7-8.2); TRIGLYCERIDES LEVEL 130 MG/DL (<150)
== END ==
LOC: SKLAB2 07:30
PROVIDERS: ATTEND Internal Medicine
DX: I10 Essential (primary) hypertension (principal); G40.909 Epilepsy, unspecified, not intractable, without status epilepticus; Z79.899 Other long term (current) drug therapy; I48.91 Unspecified atrial fibrillation; E78.5 Hyperlipidemia, unspecified; C61 Malignant neoplasm of prostate; E83.42 Hypomagnesemia

== ENCOUNTER → 2024-05-12 | Outpatient (REF) | payer OTHER ==
[2024-05-12 12:36] LABS: BLOOD UREA NITROGEN 29 MG/DL (9-23); CALCIUM LEVEL 9.6 MG/DL (8.5-10.1); CARBON DIOXIDE LEVEL 30 MMOL/L (20-31); CHLORIDE LEVEL 103 MMOL/L (98-107); CREATININE FOR GFR 0.93 MG/DL (0.70-1.30); GLOMERULAR FILTRATION RATE > 60.0 (>56); GLUCOSE, FASTING 212 MG/DL (60-100); POTASSIUM SERUM 4.2 MMOL/L (3.5-5.1); SODIUM LEVEL 139 MMOL/L (136-145)
== END ==
LOC: SKLAB2 07:00
PROVIDERS: ATTEND Internal Medicine
DX: I10 Essential (primary) hypertension (principal)

== ENCOUNTER → 2024-05-29 | Outpatient (REF) | payer OTHER ==
[2024-05-29 08:49] LABS: HEMATOCRIT 39.5 % (42.0-52.0); HEMOGLOBIN 12.4 g/dl (13.5-17.5); MEAN CORPUSCULAR HEMOGLOBIN 24.9 pg (27.0-33.0); MEAN CORPUSCULAR HGB CONC 31.4 g/dl (32.0-36.5); MEAN CORPUSCULAR VOLUME 79.3 fl (80.0-96.0); PLATELET COUNT, AUTOMATED 308 10^3/uL (150-450); RED BLOOD COUNT 4.98 10^6/uL (4.30-6.10); WHITE BLOOD COUNT 11.7 10^3/uL (4.0-10.0)
[2024-05-29 09:18] LABS: ALBUMIN 3.1 G/DL (3.2-5.2); ALKALINE PHOSPHATASE 58 U/L (40-129); ALT/SGPT 11 U/L (7.0-40); AST/SGOT < 8 U/L (<34); BILIRUBIN,TOTAL 0.3 MG/DL (0.3-1.2); BLOOD UREA NITROGEN 33 MG/DL (9-23); CALCIUM LEVEL 9.4 MG/DL (8.5-10.1); CARBON DIOXIDE LEVEL 28 MMOL/L (20-31); CHLORIDE LEVEL 104 MMOL/L (98-107); CREATININE FOR GFR 1.01 MG/DL (0.70-1.30); GLOMERULAR FILTRATION RATE > 60.0 (>56); GLUCOSE, FASTING 201 MG/DL (60-100); MAGNESIUM LEVEL 2.2 MG/DL (1.8-2.4); POTASSIUM SERUM 4.1 MMOL/L (3.5-5.1); SODIUM LEVEL 139 MMOL/L (136-145); TOTAL PROTEIN 6.9 G/DL (5.7-8.2)
== END ==
LOC: SKLAB2 06:54
PROVIDERS: ATTEND Internal Medicine
DX: E11.9 Type 2 diabetes mellitus without complications (principal)

== ENCOUNTER → 2024-06-09 | Outpatient (REF) | payer OTHER ==
[2024-06-09 08:58] LABS: BLOOD UREA NITROGEN 37 MG/DL (9-23); CALCIUM LEVEL 8.9 MG/DL (8.5-10.1); CARBON DIOXIDE LEVEL 29 MMOL/L (20-31); CHLORIDE LEVEL 101 MMOL/L (98-107); CREATININE FOR GFR 1.03 MG/DL (0.70-1.30); GLOMERULAR FILTRATION RATE > 60.0 (>56); GLUCOSE, FASTING 226 MG/DL (60-100); MAGNESIUM LEVEL 2.4 MG/DL (1.8-2.4); SODIUM LEVEL 138 MMOL/L (136-145)
== END ==
LOC: SKLAB2 07:00
PROVIDERS: ATTEND Internal Medicine
DX: E83.42 Hypomagnesemia (principal)

== ENCOUNTER → 2024-08-14 | Outpatient (REF) | payer OTHER, MEDICAID ==
[~2024-08-14] MED LIST changes: +ACET1TAB55 PO; +CETI-24 PO; +MILKSUS3 PO; +NYST1POW3 TOP; +OXYC-517 PO; +SENN-186 PO; +SPIR-10 PO; +TORS20TA2 PO
[2024-08-14 09:23] LABS: HEMOGLOBIN A1c 11.4 % (4.0-6.0)
== END ==
PROVIDERS: ATTEND Physician Assistant
DX: E11.51 Type 2 diabetes mellitus with diabetic peripheral angiopathy without gangrene (principal)

== ENCOUNTER 2024-08-19 15:30 | Emergency (ER) | payer OTHER, MEDICAID ==
[~2024-08-19 15:30] MED LIST changes: -ACET1TAB55 PO; -CETI-24 PO; -MILKSUS3 PO; -NYST1POW3 TOP; -OXYC-517 PO; -SENN-186 PO; -SPIR-10 PO; -TORS20TA2 PO
[2024-08-19] MEDS ORDERED: MILKSUS3 PO (16:59)
[2024-08-19] MEDS ORDERED: NYST1POW3 TOP ×2 (16:59)
[2024-08-19] MEDS ORDERED: TORS20TA2 PO (16:59)
[2024-08-19] MEDS ORDERED: SENN-186 PO (16:59)
[2024-08-19] MEDS ORDERED: ACET1TAB55 PO (16:59)
[2024-08-19] MEDS ORDERED: CETI-24 PO (16:59)
[2024-08-19] MEDS ORDERED: SPIR-10 PO (16:59)
[2024-08-19] MEDS ORDERED: OXYC-517 PO (16:59)
[2024-08-19] MEDS ORDERED: HOME MED LIST COMPLETE! XX SCH (17:00)
[2024-08-19 18:30] VITALS: BP 118/64; TEMP 96.8; O2SAT 95
== END 2024-08-19 19:37 | disposition home or self-care (01) ==
LOC: EDBD 15:30 → M ED 15:30
DX: I87.2 Venous insufficiency (chronic) (peripheral) (principal); E11.622 Type 2 diabetes mellitus with other skin ulcer; R22.43 Localized swelling, mass and lump, lower limb, bilateral; I48.91 Unspecified atrial fibrillation; I10 Essential (primary) hypertension; E78.5 Hyperlipidemia, unspecified; G47.33 Obstructive sleep apnea (adult) (pediatric); Z86.73 Personal history of transient ischemic attack (TIA), and cerebral infarction without residual deficits; Z79.01 Long term (current) use of anticoagulants; Z79.1 Long term (current) use of non-steroidal anti-inflammatories (NSAID); Z79.84 Long term (current) use of oral hypoglycemic drugs; Z79.899 Other long term (current) drug therapy

== ENCOUNTER → 2024-09-15 | Outpatient (REF) | payer OTHER, MEDICAID ==
[~2024-09-15] MED LIST changes: +ACET1TAB55 PO; +CETI-24 PO; +MILKSUS3 PO; +NYST1POW3 TOP; +OXYC-517 PO; +SENN-186 PO; +SPIR-10 PO; +TORS20TA2 PO
[2024-09-15 13:57] LABS: APPEARANCE, URINE CLEAR (CLEAR); BACTERIA, URINE AUTO NEGATIVE (NEGATIVE); BILIRUBIN, URINE AUTO NEGATIVE (NEGATIVE); BLOOD, URINE BLOOD NEGATIVE (NEGATIVE); COLOR, URINE STRAW (YELLOW); GLUCOSE, URINE (UA) AUTO 3+ mg/dL (NEGATIVE); KETONE, URINE AUTO NEGATIVE (NEGATIVE); LEUKOCYTE ESTERASE, URINE AUTO NEGATIVE (NEGATIVE); NITRITE, URINE AUTO NEGATIVE (NEGATIVE); PROTEIN, URINE AUTO NEGATIVE (NEGATIVE); RBC, URINE AUTO 0 /HPF (0-3); SPECIFIC GRAVITY URINE AUTO 1.014 (1.002-1.035); SQUAMOUS EPITHELIAL CELL UR AU 0 /HPF (0-6); UROBILINOGEN, URINE AUTO 0.2 mg/dL (0.0-2.0); WBC, URINE AUTO 0 /HPF (0-3)
[2024-09-15 14:21] LABS: CREATININE, URINE 20.6 MG/DL; MAU/CREAT RATIO 87.3 MCG/MG (0.0-30.0)
== END ==
PROVIDERS: ATTEND Physician Assistant
DX: I10 Essential (primary) hypertension (principal)

== ENCOUNTER → 2024-09-16 | Outpatient (REF) | payer OTHER, MEDICAID ==
[2024-09-16 09:14] LABS: BASO # 0.1 10^3/uL (0.0-0.2); BASO % 0.8 % (0.0-1.0); EOS # 0.5 10^3/uL (0.0-0.5); EOS % 4.1 % (0.0-3.0); HEMATOCRIT 39.7 % (42.0-52.0); HEMOGLOBIN 12.5 g/dl (13.5-17.5); LYMPH # 2.3 10^3/uL (1.5-5.0); LYMPH % 20.6 % (24.0-44.0); MEAN CORPUSCULAR HGB CONC 31.5 g/dl (32.0-36.5); MEAN CORPUSCULAR VOLUME 79.2 fl (80.0-96.0); MONO # 0.8 10^3/uL (0.0-0.8); NEUTROPHILS # 7.6 10^3/uL (1.5-8.5); NEUTROPHILS % 67.1 % (36.0-66.0); PLATELET COUNT, AUTOMATED 338 10^3/uL (150-450); RED BLOOD COUNT 5.01 10^6/uL (4.30-6.10); WHITE BLOOD COUNT 11.3 10^3/uL (4.0-10.0)
[2024-09-16 09:41] LABS: ALBUMIN 3.1 G/DL (3.2-5.2); ALKALINE PHOSPHATASE 59 U/L (40-129); ALT/SGPT 13 U/L (7.0-40); AST/SGOT < 8 U/L (<34); BILIRUBIN,TOTAL 0.3 MG/DL (0.3-1.2); BLOOD UREA NITROGEN 37 MG/DL (9-23); CALCIUM LEVEL 9.3 MG/DL (8.5-10.1); CARBON DIOXIDE LEVEL 25 MMOL/L (20-31); CHLORIDE LEVEL 103 MMOL/L (98-107); CREATININE FOR GFR 0.99 MG/DL (0.70-1.30); GLOMERULAR FILTRATION RATE > 60.0 (>56); GLUCOSE, FASTING 305 MG/DL (60-100); POTASSIUM SERUM 4.2 MMOL/L (3.5-5.1); SODIUM LEVEL 140 MMOL/L (136-145); TOTAL PROTEIN 7.2 G/DL (5.7-8.2)
[2024-09-22 09:08] LABS: CHOLESTEROL LEVEL 130 MG/DL (<200); CHOLESTEROL RISK RATIO 3.89 (<5); HDL CHOLESTEROL 33.4 MG/DL (>40); LDL CHOLESTEROL 66.2 MG/DL (<100); NON-HDL-C 96.6 MG/DL; TRIGLYCERIDES LEVEL 152 MG/DL (<150)
== END ==
LOC: M LAB REF 14:41
PROVIDERS: ATTEND Physician Assistant
DX: I10 Essential (primary) hypertension (principal)

== ENCOUNTER → 2024-11-16 | Outpatient (CLI) | payer MEDICAID | LOC: M RAD 11:47 | PROVIDERS: ATTEND Surgery | DX: I87.312 Chronic venous hypertension (idiopathic) with ulcer of left lower extremity (principal) ==

== ENCOUNTER → 2024-11-23 | Outpatient (REF) | payer OTHER, MEDICAID ==
[~2024-11-23] MED LIST changes: +FARX1TAB3 PO
[2024-11-23 08:21] LABS: BASO # 0.1 10^3/uL (0.0-0.2); BASO % 0.8 % (0.0-1.0); EOS # 0.5 10^3/uL (0.0-0.5); EOS % 4.1 % (0.0-3.0); HEMATOCRIT 37.8 % (42.0-52.0); HEMOGLOBIN 11.9 g/dl (13.5-17.5); LYMPH # 2.4 10^3/uL (1.5-5.0); MEAN CORPUSCULAR HEMOGLOBIN 24.8 pg (27.0-33.0); MEAN CORPUSCULAR HGB CONC 31.5 g/dl (32.0-36.5); MEAN CORPUSCULAR VOLUME 78.9 fl (80.0-96.0); MONO # 0.9 10^3/uL (0.0-0.8); MONO % 7.5 % (2.0-8.0); NEUTROPHILS # 7.7 10^3/uL (1.5-8.5); NEUTROPHILS % 66.3 % (36.0-66.0); PLATELET COUNT, AUTOMATED 304 10^3/uL (150-450); RED BLOOD COUNT 4.79 10^6/uL (4.30-6.10); WHITE BLOOD COUNT 11.6 10^3/uL (4.0-10.0)
[2024-11-23 08:50] LABS: ALBUMIN 3.2 G/DL (3.2-5.2); BILIRUBIN,TOTAL 0.4 MG/DL (0.3-1.2); CALCIUM LEVEL 9.2 MG/DL (8.5-10.1); GLOMERULAR FILTRATION RATE 86.7 (>56); POTASSIUM SERUM 4.1 MMOL/L (3.5-5.1); TOTAL PROTEIN 7.1 G/DL (5.7-8.2)
[2024-11-23 10:37] LABS: HEMOGLOBIN A1c 11.5 % (4.0-6.0)
== END ==
PROVIDERS: ATTEND Physician Assistant
DX: E11.65 Type 2 diabetes mellitus with hyperglycemia (principal)

== ENCOUNTER → 2025-01-22 | Outpatient (REF) | payer OTHER, MEDICAID ==
[~2025-01-22] MED LIST changes: +ERGO500029 PO; +HYDR-3713 PO; +JUVEPOW4 PO; +METF10004 PO
[2025-01-22 08:26] LABS: BASO # 0.1 10^3/uL (0.0-0.2); BASO % 0.7 % (0.0-1.0); EOS # 0.5 10^3/uL (0.0-0.5); EOS % 4.7 % (0.0-3.0); LYMPH # 2.6 10^3/uL (1.5-5.0); LYMPH % 22.3 % (24.0-44.0); MONO # 0.9 10^3/uL (0.0-0.8); MONO % 7.9 % (2.0-8.0); NEUTROPHILS # 7.4 10^3/uL (1.5-8.5); NEUTROPHILS % 64.2 % (36.0-66.0); PLATELET COUNT, AUTOMATED 329 10^3/uL (150-450)
[2025-01-22 08:35] LABS: ESTIMATED AVERAGE GLUCOSE 260.0 MG/DL (60-110)
[2025-01-22 08:50] LABS: ALT/SGPT 10.0 U/L (7.0-40); AST/SGOT 11.0 U/L (<34); CALCIUM LEVEL 8.8 MG/DL (8.5-10.1); CARBON DIOXIDE LEVEL 26.0 MMOL/L (20-31); CHLORIDE LEVEL 104.0 MMOL/L (98-107); CREATININE FOR GFR 1.54 MG/DL (0.70-1.30); GLOMERULAR FILTRATION RATE 51.6 (>56); POTASSIUM SERUM 4.2 MMOL/L (3.5-5.1); SODIUM LEVEL 141.0 MMOL/L (136-145)
== END ==
PROVIDERS: ATTEND Registered Nurse
DX: E11.65 Type 2 diabetes mellitus with hyperglycemia (principal)

== ENCOUNTER 2025-02-13 11:52 | Emergency (ER) | payer OTHER, MEDICAID ==
[~2025-02-13] VITALS: Ht 172.7 cm; Wt 136.8 kg
[~2025-02-13 11:52] MED LIST changes: -ERGO500029 PO; -HYDR-3713 PO; -JUVEPOW4 PO; -METF10004 PO
[2025-02-13] MEDS ORDERED: HYDR-3713 PO ×2 (16:26→18:44)
[2025-02-13] MEDS: NORCO 5/325MG TABLET (HOME DOSE PACK) PO ONE ×2 (16:30→20:12)
[2025-02-13 20:05] VITALS: BP 119/66; TEMP 97.3; O2SAT 95
== END 2025-02-13 20:36 | disposition home or self-care (01) ==
LOC: M ED 11:52 → EDBD 11:52 → CANBEDREQ 19:03 → M ED 20:36
DX: S72.431A Displaced fracture of medial condyle of right femur, initial encounter for closed fracture (principal); Y92.9 Unspecified place or not applicable; Y93.9 Activity, unspecified; Y99.9 Unspecified external cause status; Z79.1 Long term (current) use of non-steroidal anti-inflammatories (NSAID); Z79.01 Long term (current) use of anticoagulants; Z79.4 Long term (current) use of insulin; Z79.84 Long term (current) use of oral hypoglycemic drugs; Z79.899 Other long term (current) drug therapy

== ENCOUNTER 2025-02-15 15:09 | Inpatient (IN) | payer MEDICAID ==
[~2025-02-15] VITALS: Ht 172.7 cm; Wt 132.4 kg
[~2025-02-15 15:09] MED LIST changes: +HYDR-3713 PO
[2025-02-15 17:09] LABS: VENOUS BASE EXCESS -1.0 (-2.0-2.0); VENOUS HCO3 25.4 MMOL/L (23.0-27.0); VENOUS O2 SATURATION 59.2 % (60.0-80.0); VENOUS PARTIAL PRESSURE CO2 49.2 mmHg (38.0-50.0); VENOUS PARTIAL PRESSURE O2 33.9 mmHg (30.0-50.0); VENOUS PH 7.331 UNITS (7.330-7.430); VENOUS STANDARD HCO3 22.8 MMOL/L; VENOUS TOTAL CO2 26.9 MMOL/L (24.0-28.0)
[2025-02-15 17:19] LABS: BASO # 0.1 10^3/uL (0.0-0.2); BASO % 0.5 % (0.0-1.0); EOS # 0.7 10^3/uL (0.0-0.5); EOS % 4.8 % (0.0-3.0); LYMPH # 1.9 10^3/uL (1.5-5.0); LYMPH % 12.7 % (24.0-44.0); MONO # 0.9 10^3/uL (0.0-0.8); MONO % 5.8 % (2.0-8.0); NEUTROPHILS # 11.1 10^3/uL (1.5-8.5); NEUTROPHILS % 75.8 % (36.0-66.0); PLATELET COUNT, AUTOMATED 394 10^3/uL (150-450)
[2025-02-15 17:38] LABS: INR 1.35
[2025-02-15 17:45] LABS: ALT/SGPT 15.0 U/L (7.0-40); AST/SGOT 18.0 U/L (<34); CALCIUM LEVEL 9.7 MG/DL (8.5-10.1); CARBON DIOXIDE LEVEL 26.0 MMOL/L (20-31); CHLORIDE LEVEL 102.0 MMOL/L (98-107); CREATININE FOR GFR 1.31 MG/DL (0.70-1.30); DIGOXIN LEVEL 0.3 NG/ML (0.8-2.0); GLOMERULAR FILTRATION RATE 62.7 (>56); POTASSIUM SERUM 3.9 MMOL/L (3.5-5.1); SODIUM LEVEL 141.0 MMOL/L (136-145)
[2025-02-15] MEDS ORDERED: JUVEPOW4 PO (17:54)
[2025-02-15] MEDS ORDERED: METF10004 PO (17:54)
[2025-02-15] MEDS ORDERED: HOME MED LIST COMPLETE! XX SCH (18:00)
[2025-02-15] MEDS ORDERED: ERGO500029 PO (18:11)
[2025-02-15] MEDS ORDERED: FARX1TAB3 PO (18:11)
[2025-02-15] MEDS ORDERED: DOXYCYCLINE HYCLATE 100 MG TABLET PO SCH (21:00)
[2025-02-15] MEDS ORDERED: ISOVUE-370 76% 100 ML VIAL As Ordered ONE (21:02)
[2025-02-15] MEDS: LR 1,000 ML IV SCH (21:09)
[2025-02-15 21:34] LABS: APPEARANCE, URINE CLEAR (CLEAR); BACTERIA, URINE AUTO NEGATIVE (NEGATIVE); BILIRUBIN, URINE AUTO NEGATIVE (NEGATIVE); BLOOD, URINE BLOOD 3+ (NEGATIVE); GLUCOSE, URINE (UA) AUTO 3+ mg/dL (NEGATIVE); KETONE, URINE AUTO NEGATIVE (NEGATIVE); LEUKOCYTE ESTERASE, URINE AUTO NEGATIVE (NEGATIVE); NITRITE, URINE AUTO NEGATIVE (NEGATIVE); PROTEIN, URINE AUTO NEGATIVE (NEGATIVE); RBC, URINE AUTO 3 /HPF (0-3); SPECIFIC GRAVITY URINE AUTO 1.017 (1.002-1.035); SQUAMOUS EPITHELIAL CELL UR AU 0 /HPF (0-6); UROBILINOGEN, URINE AUTO 0.2 mg/dL (0.0-2.0); WBC, URINE AUTO 1 /HPF (0-3)
[2025-02-15 21:41] LABS: C REACTIVE PROTEIN QUANTITATIV 6.12 MG/DL (<1.0)
[2025-02-15 21:43] LABS: CPK CREATINE PHOSPHOKINASE 149.0 U/L (46-171)
[2025-02-15 21:48] LABS: ERYTHROCYTE SEDIMENTATION RATE 99 mm/hr (0-20)
[2025-02-16] MEDS ORDERED: MOM 30 ML SUSPENSION UDC PO PRN (00:15)
[2025-02-16] MEDS ORDERED: SENNA 8.6 MG TAB PO PRN (00:15)
[2025-02-16] MEDS: DOXYCYCLINE HYCLATE 100 MG TABLET PO SCH (01:01)
[2025-02-16] MEDS: ATORVASTATIN 20 MG TAB PO SCH (01:04)
[2025-02-16] MEDS: cefTRIAXone SOD 2 GM in DEXTROSE 5% (D5W) ADV/MINI-BAG 50 ML IV SCH (01:05)
[2025-02-16] MEDS: PROPAFENONE 150 MG TAB PO SCH (01:46)
[2025-02-16] MEDS: LanTUS (INSULIN GLARGINE INJ) 1 UNITS/0.01 ML SC SCH (02:16)
[2025-02-16 03:07] LABS: IRON (FE) 17.0 UG/DL (65-175); PERCENT SATURATION 5.2 % (19.7-50.0)
[2025-02-16 03:10] LABS: VITAMIN B12 LEVEL 671.0 PG/ML (211-911)
[2025-02-16] MEDS: ACETAMINOPHEN 325 MG TAB PO PRN (03:39)
[2025-02-16 08:00] VITALS: BP 135/72; TEMP 98.3; O2SAT 94
[2025-02-16 08:04] LABS: PLATELET COUNT, AUTOMATED 343 10^3/uL (150-450)
[2025-02-16 08:24] LABS: ERYTHROCYTE SEDIMENTATION RATE 70 mm/hr (0-20)
[2025-02-16 08:33] LABS: C REACTIVE PROTEIN QUANTITATIV 5.18 MG/DL (<1.0); CALCIUM LEVEL 9.0 MG/DL (8.5-10.1); CARBON DIOXIDE LEVEL 26.0 MMOL/L (20-31); CHLORIDE LEVEL 103.0 MMOL/L (98-107); CREATININE FOR GFR 1.15 MG/DL (0.70-1.30); GLOMERULAR FILTRATION RATE 73.3 (>56); POTASSIUM SERUM 3.6 MMOL/L (3.5-5.1); SODIUM LEVEL 142.0 MMOL/L (136-145)
[2025-02-16] MEDS: TORSEMIDE 20 MG TAB PO SCH (08:41)
[2025-02-16] MEDS: DIGOXIN 0.125 MG TAB PO SCH (08:42)
[2025-02-16] MEDS: APIXABAN 5 MG TAB PO SCH (08:42)
[2025-02-16] MEDS: MAGNESIUM OXIDE 400 MG TAB PO SCH (08:43)
[2025-02-16] MEDS: CETIRIZINE 10 MG TAB PO SCH (08:43)
[2025-02-16] MEDS: SPIRONOLACTONE 25 MG TAB PO SCH (08:43)
[2025-02-16] MEDS: NYSTATIN 100,000 UNITS/GM TOPICAL PWD 15 GM TOP SCH (08:45)
[2025-02-16 12:00] VITALS: BP 137/69; TEMP 97.9; O2SAT 96
[2025-02-16 13:15] VITALS: BP 128/75; TEMP 97.9; O2SAT 94
[2025-02-16] MEDS ORDERED: DEXTROSE 50% 50 ML SYRINGE IV PRN (15:35)
[2025-02-16] MEDS ORDERED: GLUCAGON INJ 1 MG VIAL SC PRN (15:35)
[2025-02-16] MEDS ORDERED: GLUCOSE 4 GM CHEW PO PRN (15:35)
[2025-02-16 16:00] VITALS: BP 136/57; TEMP 98.1; O2SAT 97
[2025-02-16 16:43] LABS: ESTIMATED AVERAGE GLUCOSE 243.0 MG/DL (60-110)
[2025-02-16] MEDS: INSULIN LISPRO (NovoLOG) PER UNIT SC SCH ×2 (17:35→20:57)
[2025-02-16 20:53] VITALS: BP 158/74; TEMP 97.7; O2SAT 95
[2025-02-16] MEDS: FENOFIBRATE 145 MG TABLET PO SCH (20:57)
[2025-02-17] VITALS: BP 154/58; TEMP 97.9; O2SAT 94
[2025-02-17 04:15] VITALS: BP 139/72; TEMP 97.5; O2SAT 95
[2025-02-17 06:18] LABS: PLATELET COUNT, AUTOMATED 320 10^3/uL (150-450)
[2025-02-17 06:23] LABS: ERYTHROCYTE SEDIMENTATION RATE 59 mm/hr (0-20)
[2025-02-17 06:39] LABS: C REACTIVE PROTEIN QUANTITATIV 3.85 MG/DL (<1.0); CALCIUM LEVEL 8.6 MG/DL (8.5-10.1); CARBON DIOXIDE LEVEL 26.0 MMOL/L (20-31); CHLORIDE LEVEL 103.0 MMOL/L (98-107); CREATININE FOR GFR 1.18 MG/DL (0.70-1.30); GLOMERULAR FILTRATION RATE 71.1 (>56); POTASSIUM SERUM 3.7 MMOL/L (3.5-5.1); SODIUM LEVEL 140.0 MMOL/L (136-145)
[2025-02-17 08:00] VITALS: BP 117/72; TEMP 98.2; O2SAT 94
[2025-02-17] MEDS: OMEGA-3 1000 MG CAPSULE PO SCH (12:37)
[2025-02-17] MEDS: DAPAGLIFLOZIN PROPANEDIOL 10 MG TABLET PO SCH (12:37)
[2025-02-17] MEDS: INSULIN LISPRO (NovoLOG) PER UNIT SC SCH (17:29)
[2025-02-17 20:33] VITALS: BP 117/53; TEMP 97.7; O2SAT 94
[2025-02-18 03:51] VITALS: BP 144/77; TEMP 97.5; O2SAT 95
[2025-02-18 07:26] LABS: PLATELET COUNT, AUTOMATED 334 10^3/uL (150-450)
[2025-02-18 07:50] LABS: C REACTIVE PROTEIN QUANTITATIV 3.13 MG/DL (<1.0)
[2025-02-18 07:51] LABS: CALCIUM LEVEL 8.6 MG/DL (8.5-10.1); CARBON DIOXIDE LEVEL 29.0 MMOL/L (20-31); CHLORIDE LEVEL 105.0 MMOL/L (98-107); CREATININE FOR GFR 1.19 MG/DL (0.70-1.30); GLOMERULAR FILTRATION RATE 70.4 (>56); POTASSIUM SERUM 3.9 MMOL/L (3.5-5.1); SODIUM LEVEL 144.0 MMOL/L (136-145)
[2025-02-18 08:00] VITALS: BP 156/88
[2025-02-18 09:08] LABS: ERYTHROCYTE SEDIMENTATION RATE 70 mm/hr (0-20)
[2025-02-18 12:17] VITALS: BP 137/57; TEMP 97.7; O2SAT 96
== END 2025-02-18 12:34 | DRG 383 ==
LOC: M ED 15:09 → M ED INP 02-16 00:30 → M MSPAV 02-16 13:10
PROVIDERS: ADMIT Student in an Organized Health Care Education/Training Program; ATTEND General Practice
PROC: B246ZZZ Ultrasonography of Right and Left Heart (ICD-10-PCS; principal; 2025-02-17)
DX: L03.116 Cellulitis of left lower limb (principal); N17.9 Acute kidney failure, unspecified; S72.431A Displaced fracture of medial condyle of right femur, initial encounter for closed fracture; G91.2 (Idiopathic) normal pressure hydrocephalus; I13.0 Hypertensive heart and chronic kidney disease with heart failure and stage 1 through stage 4 chronic kidney disease, or unspecified chronic kidney disease; I50.32 Chronic diastolic (congestive) heart failure; E11.22 Type 2 diabetes mellitus with diabetic chronic kidney disease; I48.91 Unspecified atrial fibrillation; Z68.42 Body mass index [BMI] 45.0-49.9, adult; E66.01 Morbid (severe) obesity due to excess calories; I87.2 Venous insufficiency (chronic) (peripheral); I87.332 Chronic venous hypertension (idiopathic) with ulcer and inflammation of left lower extremity; L97.929 Non-pressure chronic ulcer of unspecified part of left lower leg with unspecified severity; E78.5 Hyperlipidemia, unspecified; G47.33 Obstructive sleep apnea (adult) (pediatric); R29.6 Repeated falls; M79.3 Panniculitis, unspecified; M17.11 Unilateral primary osteoarthritis, right knee; M25.461 Effusion, right knee; N18.9 Chronic kidney disease, unspecified; D63.8 Anemia in other chronic diseases classified elsewhere; K59.00 Constipation, unspecified; Z79.01 Long term (current) use of anticoagulants; Z79.4 Long term (current) use of insulin; Z86.73 Personal history of transient ischemic attack (TIA), and cerebral infarction without residual deficits; Z98.2 Presence of cerebrospinal fluid drainage device; Z79.899 Other long term (current) drug therapy; W19.XXXA Unspecified fall, initial encounter; Y92.9 Unspecified place or not applicable; Y93.9 Activity, unspecified; Y99.9 Unspecified external cause status

== ENCOUNTER → 2025-02-22 | Outpatient (REF) ==
[~2025-02-22] MED LIST changes: +ERGO500029 PO; +JUVEPOW4 PO; +METF10004 PO
[2025-02-22 11:04] LABS: PLATELET COUNT, AUTOMATED 399 10^3/uL (150-450)
[2025-02-22 11:34] LABS: CALCIUM LEVEL 9.2 MG/DL (8.5-10.1); CARBON DIOXIDE LEVEL 25.0 MMOL/L (20-31); CHLORIDE LEVEL 100.0 MMOL/L (98-107); CREATININE FOR GFR 1.2 MG/DL (0.70-1.30); GLOMERULAR FILTRATION RATE 69.7 (>56); MAGNESIUM LEVEL 2.4 MG/DL (1.8-2.4); POTASSIUM SERUM 4.3 MMOL/L (3.5-5.1); SODIUM LEVEL 139.0 MMOL/L (136-145)
[2025-02-22 11:52] LABS: ESTIMATED AVERAGE GLUCOSE 237.0 MG/DL (60-110)
== END ==
PROVIDERS: ATTEND Physician Assistant
DX: E11.9 Type 2 diabetes mellitus without complications (principal)

== ENCOUNTER → 2025-02-26 | Outpatient (CLI) | payer OTHER, MEDICAID | LOC: M SOG 06:55 | PROVIDERS: ATTEND Orthopaedic Surgery | DX: M25.561 Pain in right knee (principal) ==

== ENCOUNTER → 2025-03-01 | Outpatient (REF) ==
[2025-03-01 11:39] LABS: PLATELET COUNT, AUTOMATED 443 10^3/uL (150-450)
[2025-03-01 12:16] LABS: CALCIUM LEVEL 9.3 MG/DL (8.5-10.1); CARBON DIOXIDE LEVEL 26.0 MMOL/L (20-31); CHLORIDE LEVEL 101.0 MMOL/L (98-107); CREATININE FOR GFR 1.18 MG/DL (0.70-1.30); GLOMERULAR FILTRATION RATE 71.1 (>56); POTASSIUM SERUM 4.1 MMOL/L (3.5-5.1); SODIUM LEVEL 140.0 MMOL/L (136-145)
== END ==
PROVIDERS: ATTEND Physician Assistant
DX: E11.9 Type 2 diabetes mellitus without complications (principal)

== ENCOUNTER → 2025-03-12 | Outpatient (REF) | payer MEDICAID, OTHER ==
[~2025-03-12] MED LIST changes: +IBUPROFEN 600 MG TAB PO PRN
[2025-03-12 07:30] VITALS: TEMP 97.3
[2025-03-12] MEDS: MIDAZOLAM INJ 2 MG/2 ML VIAL IV PRN (08:42)
[2025-03-12] MEDS: LIDOCAINE 1% MDV 20 ML VIAL SC SCH (10:00)
[2025-03-12] MEDS: NITROGLYCERIN 2% OINT 1 GM *U/D* PKT TOP STA (10:03)
[2025-03-12] MEDS: NS (Normal Saline) 0.9% 1,000 ML IV SCH (10:03)
[2025-03-12] MEDS: SODIUM CHLORIDE 0.9% 1000 ML XX SCH (10:04)
[2025-03-12 10:45] VITALS: BP 109/65; O2SAT 96
== END ==
LOC: M IRPRO 07:06 → EDSTATUS 08:00
PROVIDERS: ATTEND Radiology Diagnostic Radiology
DX: Z01.89 Encounter for other specified special examinations (principal)

== ENCOUNTER → 2025-03-19 | Outpatient (CLI) | payer OTHER, MEDICAID ==
[~2025-03-19] MED LIST changes: -IBUPROFEN 600 MG TAB PO PRN
== END ==
LOC: M RAD 09:07
PROVIDERS: ATTEND Radiology Diagnostic Radiology
DX: I87.2 Venous insufficiency (chronic) (peripheral) (principal); I82.812 Embolism and thrombosis of superficial veins of left lower extremity; Z98.890 Other specified postprocedural states

== ENCOUNTER → 2025-03-22 | Outpatient (REF) ==
[2025-03-22 11:46] LABS: PLATELET COUNT, AUTOMATED 423 10^3/uL (150-450)
[2025-03-22 12:29] LABS: CALCIUM LEVEL 9.2 MG/DL (8.5-10.1); CARBON DIOXIDE LEVEL 26.0 MMOL/L (20-31); CHLORIDE LEVEL 99.0 MMOL/L (98-107); CREATININE FOR GFR 1.16 MG/DL (0.70-1.30); GLOMERULAR FILTRATION RATE 72.6 (>56); POTASSIUM SERUM 4.1 MMOL/L (3.5-5.1); SODIUM LEVEL 136.0 MMOL/L (136-145)
== END ==
PROVIDERS: ATTEND Physician Assistant
DX: E11.9 Type 2 diabetes mellitus without complications (principal)

== ENCOUNTER → 2025-03-29 | Outpatient (POV) | payer MEDICAID, OTHER ==
[~2025-03-29] VITALS: Ht 167.6 cm; Wt 136.1 kg
[2025-03-29 08:45] VITALS: BP 136/64; O2SAT 99
== END ==
LOC: M IRPOV 08:30
PROVIDERS: ATTEND Registered Nurse School
DX: Z48.812 Encounter for surgical aftercare following surgery on the circulatory system (principal); I87.2 Venous insufficiency (chronic) (peripheral)

== ENCOUNTER → 2025-04-13 | Outpatient (CLI) | payer OTHER, MEDICAID | LOC: M RAD 14:33 | PROVIDERS: ATTEND Radiology Diagnostic Radiology | DX: I87.2 Venous insufficiency (chronic) (peripheral) (principal); I83.812 Varicose veins of left lower extremity with pain; L97.829 Non-pressure chronic ulcer of other part of left lower leg with unspecified severity ==

== ENCOUNTER → 2025-04-21 | Outpatient (REF) ==
[2025-04-21 11:51] LABS: PLATELET COUNT, AUTOMATED 390 10^3/uL (150-450)
[2025-04-21 12:23] LABS: CALCIUM LEVEL 9.0 MG/DL (8.5-10.1); CARBON DIOXIDE LEVEL 26.0 MMOL/L (20-31); CHLORIDE LEVEL 102.0 MMOL/L (98-107); CREATININE FOR GFR 1.51 MG/DL (0.70-1.30); GLOMERULAR FILTRATION RATE 52.9 (>56); POTASSIUM SERUM 4.4 MMOL/L (3.5-5.1); SODIUM LEVEL 140.0 MMOL/L (136-145)
== END ==
PROVIDERS: ATTEND Internal Medicine
DX: E11.9 Type 2 diabetes mellitus without complications (principal)

== ENCOUNTER → 2025-04-28 | Outpatient (POV) | payer OTHER, MEDICAID ==
[~2025-04-28] VITALS: Ht 172.7 cm; Wt 130.0 kg
[2025-04-28 08:05] VITALS: BP 109/64; O2SAT 99
== END ==
LOC: M IRPOV 07:51
PROVIDERS: ATTEND Registered Nurse School
DX: Z48.812 Encounter for surgical aftercare following surgery on the circulatory system (principal); I87.2 Venous insufficiency (chronic) (peripheral); I83.91 Asymptomatic varicose veins of right lower extremity

== ENCOUNTER → 2025-07-13 | Outpatient (REF) | payer OTHER, MEDICAID | PROVIDERS: ATTEND Internal Medicine | DX: R05.9 Cough, unspecified (principal) ==